=== PATIENT | female | born 1940 | race Caucasian/White ===

== ENCOUNTER 2017-10-17 10:53 | Observation (INO) ==
--- NOTE | 2017-10-17 11:59 | XR ---
EXAM DATE: 10/17/2017 11:54 AM EDT AGE/SEX: 77 years / Female INDICATIONS: Right upper shoulder pain. No known injury. CLINICAL DATA: This is the patient's initial encounter. Patient reports that signs and symptoms have been present for 3 days and indicates a pain score of 8/10. MEDICAL/SURGICAL HISTORY: None. None. COMPARISON: [facility], HUMERUS RIGHT MIN 2V, 10/17/2017. . FINDINGS: Degenerative changes at the acromial clavicular joint. Minimal acromial spurring. Anatomic alignment. No fracture. CONCLUSION: Degenerative changes no fracture. Lung apex clear. Electronically signed by: Kenji Magaña MD 10/17/2017 11:58 AM EDT
--- NOTE | 2017-10-17 12:00 | XR ---
EXAM DATE: 10/17/2017 11:51 AM EDT AGE/SEX: 77 years / Female INDICATIONS: Right upper arm pain. No known injury. CLINICAL DATA: This is the patient's initial encounter. Patient reports that signs and symptoms have been present for 3 days and indicates a pain score of 8/10. MEDICAL/SURGICAL HISTORY: None. None. COMPARISON: No prior exams available for comparison. FINDINGS: Bony structures are intact and in normal alignment. Osseous density is normal. Soft tissues are unre markable. No radiopaque foreign bodies seen. CONCLUSION: Negative for fracture Electronically signed by: Kenji Magaña MD 10/17/2017 11:58 AM EDT
--- NOTE | 2017-10-17 12:37 | ED ---
HPI General Chief complaint: Extremity Injury, Upper Stated complaint: R ARM Time Seen by Provider: 10/17/17 12:22 Source: patient Mode of arrival: ambulatory Limitations: no limitations History of Present Illness HPI narrative: Patient comes in complaining of pain to her right shoulder, states worse with range of motion. Patient denies any fall, or local trauma to the area. She states that she has had this pain chronically for months. However it just seems to have gotten a little more stiff and painful over the last couple of days. denies cp/sob/diaphoresis/jaw discomfort/ Past medical history significant for diabetes hyperlipidemia hypertension GERD glaucoma. Onset (ago): day(s) (2) Location: right and upper extremity Radiation: non-radiation Severity: mild Quality: sharp Pain Consistency: intermittent Relieving factors: none Exacerbating factors: movement Associated symptoms: denies other symptoms Treatments prior to arrival: none Related Data Home Medications Medication Instructions Recorded Confirmed C,E,zinc,copper [id number] 1 cap PO DAILY 10/17/17 10/17/17 [Ocuvite Adult 50 Plus] aspirin 81 mg PO DAILY 10/17/17 10/17/17 atorvastatin 20 mg PO DAILY 10/17/17 10/17/17 metformin 500 mg PO HS 10/17/17 10/17/17 metformin 750 mg PO DAILY 10/17/17 10/17/17 metoprolol succinate 25 mg PO DAILY 10/17/17 10/17/17 omeprazole 20 mg PO DAILY 10/17/17 10/17/17 Previous Rx's Medication Instructions Recorded tramadol [Ultram] 50 mg PO Q8H PRN #15 tab 10/17/17 Allergies Allergy/AdvReac Type Severity Reaction Status Date / Time aspirin Allergy Mild GI UPSET Unverified 09/21/16 18:57 Review of Systems ROS: all other systems reviewed are negative PMFSH History History Provided By: Patient Medical History Medical History Diabetes (Acute) GERD (gastroesophageal reflux disease) (Acute) Glaucoma (Acute) Hyperlipidemia (Acute) Hypertension (Acute) Surgical History Surgical History H/O eye surgery (Acute) Social History Social History Substance History: No History of Abuse Smoking Status: Former smoker How Often Do You Have a Drink Containing Alcohol: 2 to 3 times a week Recent Travel in [facility] within the Last 8 Weeks: No Recent Out of Country Travel within the Last 8 Weeks: No Exam Narrative Exam Narrative: GENERAL: Well-nourished, well-developed patient in no apparent distress. SKIN: Warm and dry. no skin lesions noted over right shoulder/clavicle HEAD: Atraumatic. Normocephalic. EYES: Pupils equal and round. No scleral icterus. No injection or drainage. ENT: No nasal bleeding or discharge. Mucous membranes pink and moist. NECK: Trachea midline. No JVD. CARDIOVASCULAR: Regular rate and rhythm. no rubs or gallops RESPIRATORY: No accessory muscle use. Clear to auscultation. Breath sounds equal bilaterally. GASTROINTESTINAL: Abdomen soft, non-tender, nondistended. No rebound or guarding MUSCULOSKELETAL: Extremities without clubbing, cyanosis, or edema. No obvious deformities.....ttp over right ac joint region, reproducible pain on palpation NEUROLOGICAL: Awake and alert. No obvious cranial nerve deficits. Motor grossly within normal limits. Five out of 5 muscle strength in the arms and legs. Normal speech. PSYCHIATRIC: Appropriate mood and affect; insight and judgment normal. Course Initial Documented Vital Signs Temperature 97.2 F L 10/17/17 10:57 Pulse Rate 105 H 10/17/17 10:57 Respiratory Rate 19 10/17/17 10:57 Blood Pressure 157/70 H 10/17/17 10:57 Pulse Oximetry 94 L 10/17/17 10:57 Last Documented Vital Signs Temperature 97.2 F L 10/17/17 10:57 Pulse Rate 105 H 10/17/17 10:57 Respiratory Rate 10/17/17 10:57 Blood Pressure 157/70 H 10/17/17 10:57 Pulse Oximetry 94 L 10/17/17 10:57 Medical Decision Making [facility] Narrative Medical Screen Exam Complete: Yes Emergency Medical Condition: Yes Differential Diagnosis Differential Diagnosis: arthritis vs fx v dislocation v subluxation v shingles Imaging Data Radiologist's impression: Humerus X-Ray 10/17/17 00:00 CONCLUSION: Negative for fracture Shoulder X-Ray 10/17/17 00:00 CONCLUSION: Degenerative changes no fracture. Lung apex clear. Discharge Plan Discharge Disposition Patient Disposition: 01 Discharge Home Discharge Condition Condition: Stable Discharge Order Discharge Orders: Discharge Order (Routine); Ordered 10/17/17 Ordered By: Micah Bose Discharge Details Diagnosis: AC (acromioclavicular) joint arthritis Physicians Team ED Provider: Micah Bose Rxs /Orders / Referrals /Forms Prescriptions: New tramadol [Ultram] 50 mg tablet 50 mg PO Q8H PRN (Reason: pain) Qty: 15 RF: 0 No Action metformin 500 mg Tablet 500 mg PO HS RF: 0 metformin 750 mg Tablet Extended Release 24 Hr 750 mg PO DAILY RF: 0 atorvastatin 20 mg Tablet 20 mg PO DAILY RF: 0 aspirin 81 mg Tablet,Delayed Release (Dr/Ec) 81 mg PO DAILY RF: 0 omeprazole 20 mg Capsule,Delayed Release(Dr/Ec) 20 mg PO DAILY RF: 0 metoprolol succinate 25 mg Tablet Extended Release 24 Hr 25 mg PO DAILY RF: 0 C,E,zinc,copper [id number] [Ocuvite Adult 50 Plus] 250-5-1 mg Capsule 1 cap PO DAILY RF: 0 Discharge Instructions Patient Printed Instructions: Arthritis (ED) Discharge Interventions Interventions: Vital Signs Last Done: 10/17/17 10:57 Status ED Status: With Doctor
[2017-10-17] MEDS ORDERED: Ketorolac Inj 30 MG/ML (IVP) Vial IV.PUSH ONE (12:58)
[2017-10-17 13:35] LABS: Baso % (Auto) 0.5 % (0.0-2.0); Eos # (Auto) 0.1 th/mm3 (0.0-0.4); Hemoglobin 14.1 gm/dL (11.6-15.3); Lymph # (Auto) 2.6 th/mm3 (1.0-4.8); Lymph % (Auto) 32.2 % (9.0-44.0); Mean Corpuscular HGB Conc 33.7 % (32.0-36.0); Mean Corpuscular Hemoglobin 31.6 pg (27.0-34.0); Mean Corpuscular Volume 93.8 fL (80.0-100.0); Mean Platelet Volume 9.7 fL (7.0-11.0); Mono # (Auto) 0.8 th/mm3 (0.0-0.9); Mono % (Auto) 9.8 % (0.0-8.0); Neut # (Auto) 4.6 th/mm3 (1.8-7.7); Neut % (Auto) 56.5 % (16.0-70.0); Platelet Count 250 th/mm3 (150-450); Red Blood Count 4.48 mil/mm3 (4.00-5.30); Red Cell Distribution Width 13.6 % (11.6-17.2); White Blood Count 8.1 th/mm3 (4.0-11.0)
[2017-10-17 13:50] LABS: Albumin 4.2 g/dL (3.4-5.0); Anion Gap 9 meq/L (5-15); Aspartate Aminotransferase 41 U/L (15-37); Blood Urea Nitrogen 15 mg/dL (7-18); Calcium 9.5 mg/dL (8.5-10.1); Carbon Dioxide 25.2 meq/L (21.0-32.0); Chloride 106 meq/L (98-107); Glomerular Filtration Rate 61 mL/min (>89); Glucose,Random 149 mg/dL (74-106); Potassium 4.4 meq/L (3.5-5.1); Sodium 140 meq/L (136-145)
[2017-10-17 13:51] LABS: Alanine Aminotransferase 54 U/L (10-53)
[2017-10-17 13:55] LABS: Alkaline Phosphatase 69 U/L (45-117); Total Protein 8.1 g/dL (6.4-8.2)
[2017-10-17 13:57] LABS: Creatine Kinase 96 U/L (26-192)
--- NOTE | 2017-10-17 13:57 | XR ---
EXAM DATE: 10/17/2017 1:41 PM EDT AGE/SEX: 77 years / Female INDICATIONS: Chest pains radiating into right arm. CLINICAL DATA: This is the patient's initial encounter. Patient reports that signs and symptoms have been present for 1 day and indicates a pain score of 7/10. MEDICAL/SURGICAL HISTORY: Cardiovascular disease. None. COMPARISON: [facility], XR CHEST PA AND LAT, 10/12/2017. . FINDINGS: A single AP view of the chest demonstrates the lungs to be symmetrically aerated without evidence of mass, infiltrate or effusion. The cardiomediastinal contours are unremarkable. Osseous structures a re intact. CONCLUSION: Stable chest without evidence of acute cardiopulmonary process. Electronically signed by: Bob Boles MD 10/17/2017 1:56 PM EDT
--- NOTE | 2017-10-17 15:42 | CT ---
EXAM DATE: 10/17/2017 3:38 PM EDT AGE/SEX: 77 years / Female INDICATIONS: Chest pain radiating to right shoulder CLINICAL DATA: This is the patient's initial encounter. Patient reports that signs and symptoms have been present for 1 day and indicates a pain score of 5/10. MEDICAL/SURGICAL HISTORY: Diabetes. Hypertension. None. RADIATION DOSE: 10.47 CTDI (mGy) COMPARISON: No prior exams available for comparison. TECHNIQUE: Volumetric scanning was performed using a multi-row detector CT scanner during bolus infu gissell of 73 ml Omnipaque 350 (iohexol) nonionic water-soluble contrast as a single exam dose. The nena a was post processed with a variety of visualization algorithms including full volume maximum intensi ty projection and sliding thin slab reformation. Using automated exposure control and adjustment of t he mA and/or kV according to patient size, radiation dose was kept as low as reasonably achievable to obtain optimal diagnostic quality images. DICOM format image data is available electronically for r eview and comparison. FINDINGS: Lungs: Mild interstitial edema without suspicious lung lesion. Mild emphysematous changes without ple ural effusion. Mediastinum there is no axillary or mediastinal adenopathy. There is no evidence for central pulmonar y emboli. There is no pericardial effusion. Minimal coronary calcifications are seen at the origin of the LAD. Bone windows: Mild degenerative changes in the thoracic spine Upper abdominal contents grossly unremarkable CONCLUSION: 1. Negative for central pulmonary emboli 2. Mild emphysematous changes without pneumothorax infiltrate or failure. Electronically signed by: Kenji Magaña MD 10/17/2017 3:41 PM EDT
[2017-10-17] MEDS ORDERED: ALPRAZolam 0.25 MG Tablet PO PRN (16:48)
[2017-10-17] MEDS ORDERED: Acetaminophen 500 MG Tablet PO PRN (16:49)
--- NOTE | 2017-10-17 16:56 | P.HPCA ---
History of Present Illness Primary Care Physician: Lia Burger MD Chief Complaint: Chest pain History of Present Illness: This is a 77-year-old female history of hypertension, hyperlipidemia, diabetes, past tobacco abuse the presents to ED via private vehicle with complaint of having a central chest pressure has been on and off for maybe 2 years. States it really only occurs when she takes in a deep breath. When it occurs lasts a few seconds. She also states she gets short of breath with some mild activity and states is basically daily is been going on for 8-9 months. She also is complaining of having right shoulder pain this been going on for couple months cannot really recall trauma. States she has had a cardiac workup in the past and upon reviewing records she had a nuclear stress test in 2013 that was nonischemic. States that she is to follow Dr. Blake but last time she saw him was in 2013. Patient has quit smoking about a months ago. Her that she smoked about one half pack a day for about 20 years. Patient is a past smoker. Quit about 8 months ago. Prior that she smoked one half pack a day 20 years. Patient history of hypertension, hyperlipidemia, diabetes. Denies known CAD. Denies family history of CAD. - Diagnosis (1) Chest pain (2) Hypertension (3) Hyperlipidemia (4) Diabetes (5) Shoulder pain Review of Systems General: Patient denies fevers, chills, and recent travel. HEENT: Patient denies headache, sore throat, difficulty swallowing. Cardiovascular: Has the chest discomfort as mentioned above. Denies sensation of heart beating rapidly or irregularly. No syncope. Denies diaphoresis. Respiratory: Has had intermittent shortness of breath for 8 or 9 months. Denies coughing wheezing or hemoptysis. GI: Patient denies nausea, vomiting, diarrhea, abdominal pain, bloody stools. Musculoskeletal: Complains of right shoulder pain. States is worsened with movement of the right arm. Cannot recall trauma. Denies calf pain or edema. Neurovascular: Patient denies numbness, tingling, weakness in extremities. Denies headache. Endocrine: Denies polyuria and polydipsia. Hematologic: Denies easy bruising. Skin: Denies rash or itching. PMFSH - History History Provided By: Patient - Medical History Medical History: Medical History (Last Reviewed 10/17/17 @ 12:32 by Micah Bose) Diabetes GERD (gastroesophageal reflux disease) Glaucoma Hyperlipidemia Hypertension - Surgical History Surgical History: Surgical History (Last Reviewed 10/17/17 @ 12:32 by Micah Bose) H/O eye surgery - Tobacco History Smoking Status: Former smoker - Alcohol History How Often Do You Have a Drink Containing Alcohol: 2 to 3 times a week - Substance Use History Substance History: No History of Abuse - Travel History Recent Travel in the [place] Within the Last 8 Weeks: No Recent Travel Out of the Country Within the Last 8 Weeks: No - Immunization History Tetanus Immunization: >5 Years Medications and Allergies Active Medications: Active Medications Acetaminophen (Tylenol) 500 mg PO Q6H PRN PRN Reason: pain scale 1-5 Hydrocodone Bitart/Acetaminophen ([place] 7.5/325) 1 tab PO Q6H PRN PRN Reason: pain scale 6-10 Albuterol (Duoneb Neb (Prn)) 1 ampul NEB Q4HR NEB PRN PRN Reason: SHORTNESS OF BREATH/WHEEZING Alprazolam (Xanax) 0.25 mg PO Q8H PRN PRN Reason: ANXIETY Clonidine HCl (Catapres) 0.1 mg PO Q6H PRN PRN Reason: SBP >165 OR DBP > 110 Insulin Human Regular (Novolin R Correctional Sugar Inj) 0 units SQ ACHS ELBA; Protocol Ondansetron HCl (Zofran Inj) 4 mg IV.PUSH Q6H PRN PRN Reason: NAUSEA Pantoprazole Sodium (Protonix) 40 mg PO DAILY ELBA Sodium Chloride (Ns Flush) 2 ml IV.FLUSH UNSCH PRN PRN Reason: FLUSH AFTER USING IV ACCESS Last Admin: 10/17/17 13:22 Dose: 2 ml Sodium Chloride (Ns Flush) 2 ml IV.FLUSH BID ELBA Sodium Chloride (Ns Flush) 2 ml IV.FLUSH PRN PRN PRN Reason: FLUSH AFTER USING IV ACCESS Allergies Allergy/AdvReac Type Severity Reaction Status Date / Time aspirin Allergy Mild GI UPSET Unverified 09/21/16 18:57 Home Medications Medication Instructions Recorded Confirmed Type C,E,zinc,copper [id number] 1 cap PO DAILY 10/17/17 10/17/17 History [Ocuvite Adult 50 Plus] aspirin 81 mg PO DAILY 10/17/17 10/17/17 History atorvastatin 20 mg PO DAILY 10/17/17 10/17/17 History metformin 500 mg PO HS 10/17/17 10/17/17 History metformin 750 mg PO DAILY 10/17/17 10/17/17 History metoprolol succinate 25 mg PO DAILY 10/17/17 10/17/17 History omeprazole 20 mg PO DAILY 10/17/17 10/17/17 History Exam Vital signs: Vital Signs 10/17/17 10:57 10/17/17 13:15 Temperature 97.2 F L Pulse Rate 105 H 97 H Respiratory Rate 19 20 Blood Pressure 157/70 H 152/66 H Pulse Oximetry 94 L 94 L Intake & Output 10/16/17 10/17/17 10/17/17 18:59 06:59 18:59 Weight 82.554 kg Narrative: GENERAL: This is a well-nourished, well-developed patient, in no apparent distress. Patient speaks in clear complete sentences. Patient is pleasant. HEENT: Head is atraumatic and normocephalic. Neck is supple without lymphadenopathy and trachea is midline. No JVD or carotid bruits. CARDIOVASCULAR: Regular rate and rhythm without murmurs, gallops, or rubs. RESPIRATORY: Clear to auscultation. Breath sounds equal bilaterally. No wheezes , rales, or rhonchi. Chest wall is nontender. No use of accessory muscles. GASTROINTESTINAL: Abdomen is nontender, nondistended. Abdomen soft. No obvious pulsatile mass or bruit. No CVA tenderness. Strong femoral pulses bilaterally. Normal bowel sounds in all quadrants. MUSCULOSKELETAL: Patient is moving upper and lower extremities freely however there is discomfort range of motion of her right arm more so in the shoulder region. No calf tenderness or edema, no Homans sign. Strong pulses in upper and lower extremities. NEUROLOGICAL: Patient is alert and oriented. Cranial nerves 2-12 are grossly intact. No focal deficits and speech is clear. SKIN: No rash and turgor is normal. Results 10/17/17 13:10 10/17/17 13:10 Cardiac Enzymes 10/17/17 10/17/17 Range/Units 13:10 13:10 AST 41 H (15-37) U/L Troponin I Less than 0.02 L (0.02-0.05) ng/mL B-Natriuretic Peptide 13 (0-100) pg/mL Coagulation 10/17/17 Range/Units 13:10 B-Natriuretic Peptide 13 (0-100) pg/mL CBC 10/17/17 Range/Units 13:10 WBC 8.1 (4.0-11.0) th/mm3 RBC 4.48 (4.00-5.30) mil/mm3 Hgb 14.1 (11.6-15.3) gm/dL Hct 42.0 (35.0-46.0) % Plt Count 250 (150-450) th/mm3 Neut # (Auto) 4.6 (1.8-7.7) th/mm3 Lymph # (Auto) 2.6 (1.0-4.8) th/mm3 [place] # (Auto) 0.8 (0.0-0.9) th/mm3 Eos # (Auto) 0.1 (0.0-0.4) th/mm3 Baso # (Auto) 0.0 (0.0-0.2) th/mm3 Comprehensive Metabolic Panel 10/17/17 Range/Units 13:10 Sodium 140 (136-145) meq/L Potassium 4.4 (3.5-5.1) meq/L Chloride 106 (98-107) meq/L Carbon Dioxide 25.2 (21.0-32.0) meq/L BUN 15 (7-18) mg/dL Creatinine 0.89 (0.50-1.00) mg/dL Calcium 9.5 (8.5-10.1) mg/dL AST 41 H (15-37) U/L ALT 54 H (10-53) U/L Alkaline Phosphatase 69 (45-117) U/L Total Protein 8.1 (6.4-8.2) g/dL Albumin 4.2 (3.4-5.0) g/dL Intake and Output 10/17/17 10/17/17 10/17/17 06:59 14:59 22:59 Other: Weight 82.554 kg Patient Weight 10/18/17 06:59 Weight 82.554 kg EKG interpretations - EKG EKG shows: sinus rhythm (Initial EKG is sinus rhythm with nonspecific anterolateral ST-T changes.) Caprini VTE Risk Assessment Caprini VTE Risk Assessment: Moderate/High Risk (score >= 2) Caprini Risk Assessment Model: Point Value = 1 Point Value = 2 Point Value = 3 Point Value = 5 Age 41-60 Minor surgery BMI > 25 kg/m2 Swollen legs Varicose veins or History of unexplained or recurrent spontaneous Oral contraceptives or hormone replacement Sepsis (< 1 month) Serious lung disease, including pneumonia (< 1 month) Abnormal pulmonary function Acute myocardial infarction Congestive heart failure (< 1 month) History of inflammatory bowel disease Medical patient at bed rest Age 61-74 Arthroscopic surgery Major open surgery (> 45 min) Laparoscopic surgery (> 45 min) Malignancy Confined to bed (> 72 hours) Immobilizing plaster cast Central venous access Age >= 75 History of VTE Family history of VTE Factor V Leiden Prothrombin [id number] Lupus anticoagulant Anticardiolipin antibodies Elevated serum homocysteine Heparin-induced thrombocytopenia Other congenital or acquired thrombophilia Stroke (< 1 month) Elective arthroplasty Hip, pelvis, or leg fracture Acute spinal cord injury (< 1 month) Prophylaxis Regimen: Total Risk Factor Score Risk Level Prophylaxis Regimen 0-1 Low Early ambulation 2 Moderate Order ONE of the following: *Sequential Compression Device (SCD) *Heparin 5000 units SQ BID 3-4 Higher Order ONE of the following medications: *Heparin 5000 units SQ TID *Enoxaparin/Lovenox 40 mg SQ daily (WT < 150 kg, CrCl > 30 mL/min) *Enoxaparin/Lovenox 30 mg SQ daily (WT < 150 kg, CrCl > 10-29 mL/min) *Enoxaparin/Lovenox 30 mg SQ BID (WT < 150 kg, CrCl > 30 mL/min) AND/OR *Sequential Compression Device (SCD) 5 or more Highest Order ONE of the following medications: *Heparin 5000 units SQ TID (Preferred with Epidurals) *Enoxaparin/Lovenox 40 mg SQ daily (WT < 150 kg, CrCl > 30 mL/min) *Enoxaparin/Lovenox 30 mg SQ daily (WT < 150 kg, CrCl > 10-29 mL/min) *Enoxaparin/Lovenox 30 mg SQ BID (WT < 150 kg, CrCl > 30 mL/min) AND *Sequential Compression Device (SCD) Assessment and Plan - Assessment (1) Chest pain Code(s): R07.9 - Chest pain, unspecified Status: Acute (2) Hypertension Code(s): I10 - Essential (primary) hypertension Status: Acute (3) Hyperlipidemia Code(s): E78.5 - Hyperlipidemia, unspecified Status: Acute (4) Diabetes Code(s): E11.9 - Type 2 diabetes mellitus without complications Status: Acute (5) Shoulder pain Code(s): M25.519 - Pain in unspecified shoulder Status: Acute - Plan * Chest pain: Patient will continue to have serial cardiac enzymes and EKGs for ruling out purposes. She will be seen by Dr. Davis of cardiology in the chest pain center in the morning. Patient likely to have a Lexiscan if ruled out. 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 Return to ED for interval issues. * Hypertension: Continue medication. * Hyperlipidemia: Continue medication. * Diabetes: Hold metformin for 2 days. Have sliding scale insulin coverage. Patient instructed to follow diabetic diet. * Shoulder pain: X-ray of the humerus and right shoulder do not reveal acute fracture. Patient should further follow-up with PCP. Patient is stable at this time. She is agreeable to this plan.
[2017-10-17] MEDS: Insulin NovoLIN Regular Correctional Sugar Inj SQ SCH (17:05)
[2017-10-17 18:00] LABS: Creatine Kinase 87 U/L (26-192)
[2017-10-17 21:36] LABS: Creatine Kinase 108 U/L (26-192)
[2017-10-18] MEDS: Insulin NovoLIN Regular Correctional Sugar Inj SQ SCH ×3 (03:06→13:19)
[2017-10-18] MEDS ORDERED: Regadenoson Inj 0.4 MG/5 ML Syringe IV.PUSH ONE (09:39)
--- NOTE | 2017-10-18 13:50 | ECG ---
Date Performed: 10/17/2017 Time Performed: 13:04:39 PTAGE: 77 years EKG: Sinus rhythm POSSIBLE LEFT ATRIAL ENLARGEMENT ST DEVIATION AND MODERATE T-WAVE ABNORMALITY, CONSIDER ANTERIOR ISC HEMIA ABNORMAL ECG Compared to PREVIOUS TRACING rate has increased but otherwise largely unchanged Clinical correlation is recommended PREVIOUS TRACIN05/19/2012 18.22 DOCTOR: Dylan Alanis Interpretating Date/Time 10/18/2017 13:49:16
--- NOTE | 2017-10-18 14:14 | NM ---
EXAM DATE: 10/18/2017 11:41 AM EDT AGE/SEX: 77 years / Female INDICATIONS:Angina. . Mid chest pain for two years. CLINICAL DATA: This is the patient's initial encounter. Patient reports that signs and symptoms have been present for 1 day and indicates a pain score of 3/10. MEDICAL/SURGICAL HISTORY: Diabetes mellitus type II. Gastroesophageal reflux disease. Hyperte nsion. None. [place] [facility] [place]F [place] SPECT[place] 05/20/2012. . No external comparison. DOSE: 8.5 mCi Tc 99m Myoview at rest 26.2 mCi [id number] at stress 0.4 mg Lexiscan STRESS SYMPTOMS: Short of breath and stomach pain. EJECTION FRACTION: 74 % TECHNIQUE: The patient underwent pharmacologic stress with infusion of prescribed dose. Continuous ECG tracing was monitored during stress. Gated SPECT imaging was performed after stress and conventi onal SPECT imaging was performed at rest. The examination was performed on a SPECT/CT scanner, both attenuation and non-corrected datasets were reviewed. FINDINGS: Distribution: The maximum perfused segment at stress is in the anterior lateral wall. Gut activity o bscures inferior wall Perfusion Study: The pattern of perfusion at stress is within normal limits. Gated Study: There are intact wall motion and wall thickening without hypokinetic or dyskinetic segm ents. The ejection fraction is calculated at 74%. RISK CATEGORY: Low CONCLUSION: 1. Negative for stress-induced ischemia. 2. Gut activity obscures inferior wall correlation suggested. Electronically signed by: Kenji Magaña MD 10/18/2017 2:13 PM EDT
--- NOTE | 2017-10-18 16:49 | TR ---
Date Performed: 10/18/2017 Time Performed: 09:44:35 DOCTOR: Taya Davis DRUG LIST: CLINICAL HISTORY: ANGINA REASON FOR TEST: Angina REASON FOR ENDING: OBSERVATION: CONCLUSION: Lexiscan stress test was performed under standard four minute protocol. Radionuclid e was injected one minute prior to ending the test. No electrocardiographic abormalities were present to suggest ischemia. (non-specific ST changes at baseline-> nondiagnostic) Nuclear imaging and inter pretation are pending. COMMENTS: No definitive ischemia
--- NOTE | 2017-10-18 16:53 | ECG ---
Date Performed: 10/17/2017 Time Performed: 21:56:08 PTAGE: 77 years EKG: Sinus rhythm MINIMAL ST DEPRESSION BORDERLINE ECG Since PREVIOUS TRACING , no significant change noted PREVIOUS TRACIN10/17/2017 16.55 DOCTOR: Taya Davis Interpretating Date/Time 10/18/2017 16:51:05
--- NOTE | 2017-10-18 16:54 | ECG ---
Date Performed: 10/17/2017 Time Performed: 16:55:45 PTAGE: 77 years EKG: Sinus rhythm WITH SHORT CO INTERVAL POSSIBLE LEFT ATRIAL ENLARGEMENT ST DEVIATION AND MODERATE T-WAVE ABNORMALITY , CONSIDER ANTERIOR ISCHEMIA ABNORMAL ECG Since PREVIOUS TRACING , no significant change noted PREVIOUS TRACIN10/17/2017 13.04 DOCTOR: Taya Davis Interpretating Date/Time 10/18/2017 16:51:39
== END 2017-10-18 16:02 | disposition left against medical advice (07) ==
LOC: NEPD 10:53 → NEDA 10:53 → NEPFCDU 19:00
PROVIDERS: ADMIT Internal Medicine Cardiovascular Disease; ATTEND Internal Medicine Cardiovascular Disease